=== PATIENT | female | born 1990 ===

== ENCOUNTER 2018-06-22 14:41 | Emergency (ER) | payer OTHER ==
[2018-06-22 14:59] VITALS: BP 112/54; PULSE 76; RESP 18; TEMP 98.1; O2SAT 100; BMI 20.1
--- NOTE | 2018-06-22 15:26 | C.PDOC ---
History Of Present Illness 27 y/o female presents to the ER complaining of body aches and chills which have been present since yesterday. ALso reports feeling occasional nausea. Patient states that she took Aleve without relief. Denies . Denies having fever, cough, sore throat, chest pain, sob, muscle cramping, leg swelling, vomiting, and abdominal pain. Time Seen by Provider: 06/22/18 14:56 Chief Complaint (Nursing): Flu-like Symptoms History Per: Patient History/Exam Limitations: no limitations Onset/Duration Of Symptoms: Days Current Symptoms Are (Timing): Still Present Past Medical History Reviewed: Historical Data, Nursing Documentation, Vital Signs Vital Signs: Last Vital Signs Temp 98.1 F 06/22/18 14:56 Pulse 76 06/22/18 14:56 Resp 18 06/22/18 14:56 BP 112/54 L 06/22/18 14:56 Pulse Ox 100 06/22/18 14:56 - Medical History PMH: No Chronic Diseases Surgical History: No Surg Hx Family History: States: No Known Family Hx - Social History Hx Tobacco Use: Yes Hx Alcohol Use: No Hx Substance Use: No - Immunization History Hx Tetanus Toxoid Vaccination: Yes Hx Influenza Vaccination: No Hx Pneumococcal Vaccination: No Review Of Systems Except As Marked, All Systems Reviewed And Found Negative. Constitutional: Positive for: Chills, Malaise. Negative for: Fever ENT: Negative for: Throat Pain Respiratory: Negative for: Cough Gastrointestinal: Positive for: Nausea. Negative for: Vomiting, Abdominal Pain Physical Exam - Physical Exam Appears: Well, Non-toxic, No Acute Distress Skin: Normal Color, Warm, Dry Head: Atraumatic, Normacephalic Eye(s): bilateral: Normal Inspection, EOMI Ear(s): Bilateral: Normal Nose: Normal Oral Mucosa: Moist Throat: Normal, No Erythema, No Exudate Neck: Normal ROM, Supple Chest: Symmetrical Cardiovascular: Rhythm Regular Respiratory: Normal Breath Sounds, No Rales, No Rhonchi, No Wheezing Gastrointestinal/Abdominal: Normal Exam, Soft, No Tenderness Back: No CVA Tenderness, No Vertebral Tenderness Extremity: Normal ROM Neurological/Psych: Oriented x3, Normal Speech, Normal Sensation Gait: Steady ED Course And Treatment O2 Sat by Pulse Oximetry: 100 (RA) Pulse Ox Interpretation: Normal Progress Note: Pt offered further evaluation, however, she declined. Pt just requested work note. Pt has been discharged and instructed to follow up with PMD in 2-3 days. Disposition - Disposition Disposition: HOME/ ROUTINE Disposition Time: 15:26 Condition: STABLE Additional Instructions: Drink plenty of fluids. Follow up with your primary medical doctor or clinic in 2-5 days for further evaluation. Return to the emergency department at any time if symptoms persist or worsen. Instructions: Viral Syndrome (DC) Forms: [employer] (Telugu), Work Excuse - Clinical Impression Clinical Impression: Viral illness - PA / [employer] / Resident Statement MD/DO has reviewed & agrees with the documentation as recorded. - Scribe Statement The provider has reviewed the documentation as recorded by the Clive Spicer Provider Attestation All medical record entries made by the Johnibdayanna were at my direction and personally dictated by me. I have reviewed the chart and agree that the record accurately reflects my personal performance of the history, physical exam, medical decision making, and the department course for this patient. I have also personally directed, reviewed, and agree with the discharge instructions and disposition.
== END 2018-06-22 15:48 | disposition home or self-care (01) ==
LOC: C.ER 14:41
DX: B34.9 Viral infection, unspecified (principal)